=== PATIENT | female | born 1970 | race African-American/Black ===

== ENCOUNTER 2019-01-31 01:58 | Emergency (ER) | payer BC, OTHER ==
[~2019-01-31] VITALS: Ht 165.1 cm; Wt 59.0 kg
[2019-01-31 02:08] VITALS: BP 123/66
== END 2019-01-31 03:23 | disposition left against medical advice (07) ==
LOC: ER 01:58
DX: Z53.21 Procedure and treatment not carried out due to patient leaving prior to being seen by health care provider (principal)